=== PATIENT | male | born 1990 | race Caucasian/White ===

== ENCOUNTER 2020-07-20 19:39 | Emergency (ER) | payer MEDICAID, OTHER ==
[~2020-07-20] VITALS: Ht 180.3 cm; Wt 68.2 kg
[~2020-07-20 19:39] MED LIST: DIPH-423 PO; METO-292 PO; OMEP20CA15 PO; ONDA4TAB12 PO; ONDA4TAB6 PO; PHE25R PR; PROC-8 PO
[2020-07-20 19:40] VITALS: BP 137/66
[2020-07-20] MEDS ORDERED: LIDOcaine 1% W/epiNEPHrine 1:200,000 10ml vial IJ ONE (21:15)
== END 2020-07-20 22:41 | disposition home or self-care (01) ==
LOC: ER 19:39
DX: S61.214A Laceration without foreign body of right ring finger without damage to nail, initial encounter (principal); G43.909 Migraine, unspecified, not intractable, without status migrainosus; F12.90 Cannabis use, unspecified, uncomplicated; Z56.0 Unemployment, unspecified; Z60.2 Problems related to living alone; W45.8XXA Other foreign body or object entering through skin, initial encounter; Y93.89 Activity, other specified; Y92.89 Other specified places as the place of occurrence of the external cause; Y99.8 Other external cause status
CPT/HCPCS: 12001; 99282

== ENCOUNTER 2020-09-01 17:49 | Emergency (ER) | payer MEDICAID ==
[~2020-09-01] VITALS: Ht 180.3 cm; Wt 66.4 kg
[2020-09-01] MEDS ORDERED: ondansetron/PF 4mg/2ml inj IV ONE (20:30)
[2020-09-01] MEDS ORDERED: mag hydrox/Alum hydrox/simeth 30ml oral suspension PO ONE (20:30)
[2020-09-01] MEDS ORDERED: famotidine 20mg tablet PO ONE (20:30)
[2020-09-01] MEDS ORDERED: dicyclomine 10 MG capsule PO ONE (20:30)
[2020-09-01 20:38] LABS: BASOPHILS % (AUTO) 0.1 % (0-1); EOSINOPHILS % (AUTO) 0 % (0-6); HEMATOCRIT 48.3 % (42.0-52.0); HEMOGLOBIN 16.4 g/dl (14.0-17.9); LYMPHOCYTES # (AUTO) 0.7 X10'3 (1.1-4.8); LYMPHOCYTES % (AUTO) 3.4 % (21-51); MEAN CORPUSCULAR HEMOGLOBIN 31.4 PG (27.0-31.0); MEAN CORPUSCULAR VOLUME 92.3 FL (78-98); MEAN PLATELET VOLUME 9.7 FL (7.4-10.4); MONOCYTES # (AUTO) 0.6 X10'3 (0-0.9); MONOCYTES % (AUTO) 3.2 % (2-12); NEUTROPHILS # (AUTO) 18.3 X10'3 (1.8-7.7); NEUTROPHILS % (AUTO) 93.3 % (42-75); PLATELET COUNT 208 X10'3 (140-440); RED BLOOD COUNT 5.23 X10'6 (4.70-6.10); RED CELL DISTRIBUTION WIDTH 12.4 % (11.5-14.5); WHITE BLOOD COUNT 19.6 X10'3 (4.5-11.0)
[2020-09-01 20:46] LABS: ALANINE AMINOTRANSFERASE 18 U/L (12-78); ALBUMIN/GLOBULIN RATIO 1.5 (1.1-1.5); ALKALINE PHOSPHATASE 100 IU/L (46-116); ANION GAP 15 (8-16); ASPARTATE AMINO TRANSFERASE 41 U/L (10-37); BILIRUBIN,TOTAL 0.9 MG/DL (0.1-1.0); BLOOD UREA NITROGEN 12 MG/DL (7-18); CALCIUM 9.8 MG/DL (8.5-10.1); CHLORIDE 101 MMOL/L (99-107); CREATININE 1.34 MG/DL (0.60-1.10); GLUCOSE 176 MG/DL (70-104); LIPASE 82 U/L (73-393); POTASSIUM 3.6 MMOL/L (3.5-5.1); SODIUM 137 MMOL/L (135-145); TOTAL CARBON DIOXIDE 20.7 MMOL/L (24-32); TOTAL PROTEIN 8.3 G/DL (6.4-8.2); eGFR 63 ML/MIN
[2020-09-01] MEDS ORDERED: normal saline 1000ML IV soln IVB ONE (21:05)
--- NOTE | 2020-09-01 21:11 | NUR ---
GAVE PT ICE CHIPS, VARINDER WELL, NO N/V
[2020-09-01 21:16] LABS: C-REACTIVE PROTEIN 0.34 MG/DL (0.0-0.5)
[2020-09-01] MEDS ORDERED: diphenhydrAMINE 50 mg/ml inj IV ONE (21:45)
[2020-09-01] MEDS ORDERED: proCHLORperazine 10 MG/2 ml inj IV ONE (21:45)
--- NOTE | 2020-09-01 21:45 | NUR ---
PT HAS STARTED VOMITING AGAIN,
[2020-09-01] MEDS ORDERED: DICY10CA88 PO (22:34)
[2020-09-01] MEDS ORDERED: ONDA4TAB6 PO (22:34)
[2020-09-01 22:39] VITALS: BP 116/70
== END 2020-09-01 22:41 | disposition home or self-care (01) ==
LOC: ER 17:50
DX: R11.2 Nausea with vomiting, unspecified (principal); R10.84 Generalized abdominal pain; G43.909 Migraine, unspecified, not intractable, without status migrainosus; F12.90 Cannabis use, unspecified, uncomplicated; Z60.2 Problems related to living alone; Z56.0 Unemployment, unspecified; Z79.899 Other long term (current) drug therapy
CPT/HCPCS: 36415; 80053; 83690; 85025; 85651; 86140; 96374; 96375; 99284; J0780; J1200; J2405; J7030

== ENCOUNTER 2020-09-03 00:08 | Emergency (ER) | payer MEDICAID ==
[~2020-09-03] VITALS: Ht 180.3 cm; Wt 50.0 kg
[~2020-09-03 00:08] MED LIST changes: +DICY10CA88 PO
[2020-09-03] MEDS ORDERED: normal saline 1000ml 1,000 ML IV ONE (00:45)
[2020-09-03] MEDS ORDERED: ondansetron/PF 4mg/2ml inj IV ONE ×2 (00:45→01:45)
[2020-09-03] MEDS ORDERED: haloperidol lactate 5mg/ml inj IM ONE (01:00)
[2020-09-03 01:27] LABS: ANION GAP 11 (8-16); BLOOD UREA NITROGEN 15 MG/DL (7-18); BUN/CREATININE RATIO 10.1 (5.4-32.0); CALCIUM 10.3 MG/DL (8.5-10.1); CHLORIDE 100 MMOL/L (99-107); CREATININE 1.48 MG/DL (0.60-1.10); GLUCOSE 127 MG/DL (70-104); POTASSIUM 3.6 MMOL/L (3.5-5.1); SODIUM 138 MMOL/L (135-145); TOTAL CARBON DIOXIDE 26.7 MMOL/L (24-32); eGFR 57 ML/MIN
[2020-09-03] MEDS ORDERED: diphenhydrAMINE 25 MG/10 ML UD oral solution PO ONE (01:45)
[2020-09-03 02:36] VITALS: BP 127/79
== END 2020-09-03 02:37 | disposition home or self-care (01) ==
LOC: ER 01:56
DX: R11.15 Cyclical vomiting syndrome unrelated to migraine (principal); R11.2 Nausea with vomiting, unspecified; R10.32 Left lower quadrant pain; G43.909 Migraine, unspecified, not intractable, without status migrainosus; F32.9 Major depressive disorder, single episode, unspecified; F12.90 Cannabis use, unspecified, uncomplicated; Z60.2 Problems related to living alone; Z56.0 Unemployment, unspecified; Z79.899 Other long term (current) drug therapy
CPT/HCPCS: 36415; 80048; 96361; 96372; 96374; 96376; 99284; J1630; J2405; J7030; Q0163; 96375

== ENCOUNTER 2020-09-03 14:34 | Emergency (ER) | payer MEDICAID ==
[~2020-09-03] VITALS: Ht 180.3 cm; Wt 78.0 kg
[2020-09-03 15:14] LABS: BASOPHILS % (AUTO) 0.2 % (0-1); EOSINOPHILS % (AUTO) 0.1 % (0-6); HEMATOCRIT 44.7 % (42.0-52.0); HEMOGLOBIN 15.2 g/dl (14.0-17.9); LYMPHOCYTES # (AUTO) 1.5 X10'3 (1.1-4.8); LYMPHOCYTES % (AUTO) 10.2 % (21-51); MEAN CORPUSCULAR VOLUME 91.1 FL (78-98); MEAN PLATELET VOLUME 8.6 FL (7.4-10.4); MONOCYTES # (AUTO) 1.2 X10'3 (0-0.9); MONOCYTES % (AUTO) 7.8 % (2-12); NEUTROPHILS % (AUTO) 81.7 % (42-75); PLATELET COUNT 200 X10'3 (140-440); RED BLOOD COUNT 4.91 X10'6 (4.70-6.10); RED CELL DISTRIBUTION WIDTH 12.5 % (11.5-14.5); WHITE BLOOD COUNT 14.7 X10'3 (4.5-11.0)
[2020-09-03 15:31] LABS: ALANINE AMINOTRANSFERASE 25 U/L (12-78); ALBUMIN 4.7 G/DL (3.4-5.0); ALBUMIN/GLOBULIN RATIO 1.4 (1.1-1.5); ALKALINE PHOSPHATASE 94 IU/L (46-116); ANION GAP 10 (8-16); ASPARTATE AMINO TRANSFERASE 55 U/L (10-37); BILIRUBIN,TOTAL 1.2 MG/DL (0.1-1.0); BLOOD UREA NITROGEN 13 MG/DL (7-18); BUN/CREATININE RATIO 8.7 (5.4-32.0); CALCIUM 9.8 MG/DL (8.5-10.1); CHLORIDE 100 MMOL/L (99-107); GLUCOSE 114 MG/DL (70-104); LIPASE 123 U/L (73-393); POTASSIUM 3.2 MMOL/L (3.5-5.1); SODIUM 137 MMOL/L (135-145); TOTAL CARBON DIOXIDE 26.9 MMOL/L (24-32); TOTAL PROTEIN 8.1 G/DL (6.4-8.2); eGFR 56 ML/MIN
--- NOTE | 2020-09-03 15:53 | NUR ---
pt stated just went to bathroom and unable to give a ua at this time.
[2020-09-03] MEDS ORDERED: normal saline 1000ml 1,000 ML IV ONE (16:20)
[2020-09-03] MEDS ORDERED: proCHLORperazine 10 MG/2 ml inj IV ONE (16:20)
[2020-09-03] MEDS ORDERED: diphenhydrAMINE 50 mg/ml inj IV ONE (16:20)
[2020-09-03] MEDS ORDERED: dicyclomine 10mg/ml 2ml ampule IM ONE (16:20)
[2020-09-03] MEDS ORDERED: ondansetron/PF 4mg/2ml inj IV ONE (16:20)
[2020-09-03] MEDS ORDERED: potassium Cl 10 mEq/100mL bag IV ONE (16:30)
[2020-09-03] MEDS ORDERED: potassium Cl 20 mEq SR tablet PO ONE (17:00)
--- NOTE | 2020-09-03 17:02 | NUR ---
Alberto LYON ordered to cancel the iv kcl and he will replace with po kcl. iv stopped. pt c/o burning at iv site even with dilution with ns.
[2020-09-03 17:07] VITALS: BP 117/81
== END 2020-09-03 18:19 | disposition home or self-care (01) ==
LOC: ER 14:35
DX: R11.15 Cyclical vomiting syndrome unrelated to migraine (principal); E87.6 Hypokalemia; R10.84 Generalized abdominal pain; G43.909 Migraine, unspecified, not intractable, without status migrainosus; F32.9 Major depressive disorder, single episode, unspecified; F12.90 Cannabis use, unspecified, uncomplicated; Z60.2 Problems related to living alone; Z56.0 Unemployment, unspecified; Z79.899 Other long term (current) drug therapy
CPT/HCPCS: 36415; 80053; 83690; 85025; 96365; 96372; 96375; 99284; J0500; J0780; J1200; J2405; J3480; J7030

== ENCOUNTER 2020-09-05 10:00 | Emergency (ER) | payer MEDICAID ==
[~2020-09-05] VITALS: Ht 180.3 cm; Wt 62.7 kg
[2020-09-05 10:15] VITALS: BP 161/79
== END 2020-09-05 10:46 | disposition left against medical advice (07) ==
LOC: ER 10:00
DX: R11.10 Vomiting, unspecified (principal); Z53.21 Procedure and treatment not carried out due to patient leaving prior to being seen by health care provider
CPT/HCPCS: 99281

== ENCOUNTER 2023-01-10 01:40 | Emergency (ER) | payer MEDICAID ==
[~2023-01-10] VITALS: Ht 182.9 cm; Wt 72.7 kg
[2023-01-10] MEDS ORDERED: HYDROcodone/acetaminophen 5mg/325mg tablet PO ONE (03:50)
[2023-01-10 03:54] LABS: BASOPHILS # (AUTO) 0.1 X10'3 (0-0.2); BASOPHILS % (AUTO) 0.8 % (0-1); EOSINOPHILS # (AUTO) 0.4 X10'3 (0-0.9); EOSINOPHILS % (AUTO) 4.7 % (0-6); HEMATOCRIT 43.3 % (42.0-52.0); HEMOGLOBIN 14.9 g/dl (14.0-17.9); LYMPHOCYTES # (AUTO) 1.9 X10'3 (1.1-4.8); LYMPHOCYTES % (AUTO) 22.9 % (21-51); MEAN CORPUSCULAR HEMOGLOBIN 31.4 PG (27.0-31.0); MEAN CORPUSCULAR HGB CONC 34.3 g/dL (33.0-36.5); MEAN CORPUSCULAR VOLUME 91.4 FL (78-98); MEAN PLATELET VOLUME 8.9 FL (7.4-10.4); MONOCYTES # (AUTO) 0.6 X10'3 (0-0.9); MONOCYTES % (AUTO) 7.5 % (2-12); NEUTROPHILS # (AUTO) 5.3 X10'3 (1.8-7.7); NEUTROPHILS % (AUTO) 64.1 % (42-75); PLATELET COUNT 192 X10'3 (140-440); RED BLOOD COUNT 4.74 X10'6 (4.70-6.10); WHITE BLOOD COUNT 8.2 X10'3 (4.5-11.0)
[2023-01-10] MEDS ORDERED: morphine 4 MG/ML inj SYRINge IV ONE (03:55)
[2023-01-10] MEDS ORDERED: ondansetron/PF 4mg/2ml inj IV ONE (03:55)
[2023-01-10 04:07] LABS: ALANINE AMINOTRANSFERASE 17 U/L (12-78); ALBUMIN 4.2 G/DL (3.4-5.0); ALBUMIN/GLOBULIN RATIO 1.4 (1.1-1.5); ALKALINE PHOSPHATASE 93 IU/L (46-116); ANION GAP 9 (8-16); ASPARTATE AMINO TRANSFERASE 19 U/L (10-37); BILIRUBIN,TOTAL 0.5 MG/DL (0.1-1.0); BLOOD UREA NITROGEN 18 MG/DL (7-18); BUN/CREATININE RATIO 14.9 (5.4-32.0); C-REACTIVE PROTEIN 0.18 MG/DL (0.0-0.5); CALCIUM 8.9 MG/DL (8.5-10.1); CHLORIDE 104 MMOL/L (99-107); CREATININE 1.21 MG/DL (0.60-1.10); GLUCOSE 104 MG/DL (70-104); MAGNESIUM 2.1 MG/DL (1.5-2.4); POTASSIUM 3.6 MMOL/L (3.5-5.1); SODIUM 143 MMOL/L (135-145); TOTAL CARBON DIOXIDE 29.9 MMOL/L (24-32); TOTAL PROTEIN 7.2 G/DL (6.4-8.2); eGFR 70 ML/MIN
[2023-01-10 04:19] LABS: CLARITY,URINE SLIGHTLY CLOUDY (Clear); COLOR,URINE YELLOW (Yellow); GLUCOSE, URINE NEGATIVE (Neg); KETONES,URINE NEGATIVE (Neg); LEUKOCYTE ESTERASE ,URINE NEGATIVE (Neg); NITRITES, URINE NEGATIVE (Neg); OCCULT BLOOD,URINE NEGATIVE (Neg); PH,URINE 7.5 (4.8-8.0); PROTEIN,URINE NEGATIVE (Neg); UROBILINOGEN,URINE 0.2 E.U/dL (0.2-1.0)
[2023-01-10 04:21] LABS: UA COLLECTION TYPE CLN CATCH MIDSTREAM
[2023-01-10 04:25] LABS: AMORPHOUS PHOSPHATES 4+; BACTERIA,URINE FEW /HPF (Neg); MUCUS STRANDS NONE SEEN /LPF (Neg); RBC,URINE 0-2 /HPF (0-2); SQUAMOUS EPITHELIAL CELL,UR NONE SEEN /LPF (FEW); WBC,URINE 0-4 /HPF (0-4)
[2023-01-10] MEDS ORDERED: HYDR-3965 PO (05:11)
[2023-01-10] MEDS ORDERED: ONDA4TAB12 PO (05:11)
[2023-01-10] MEDS ORDERED: NAPR-56 PO (05:11)
[2023-01-10] MEDS ORDERED: ketorolac trometh. 30mg/ml inj. IV ONE (05:20)
[2023-01-10 05:35] VITALS: BP 111/74
== END 2023-01-10 05:49 | disposition home or self-care (01) ==
LOC: ER 01:41
DX: R21 Rash and other nonspecific skin eruption (principal); R60.0 Localized edema; M79.672 Pain in left foot; M79.671 Pain in right foot; G43.909 Migraine, unspecified, not intractable, without status migrainosus; F32.9 Major depressive disorder, single episode, unspecified; F12.90 Cannabis use, unspecified, uncomplicated; Z56.0 Unemployment, unspecified; Z60.2 Problems related to living alone; Z72.89 Other problems related to lifestyle; Z79.899 Other long term (current) drug therapy
CPT/HCPCS: 36415; 80053; 81001; 83605; 83735; 84145; 85025; 85651; 86140; 87040; 96374; 96375; 99284; J1885; J2270; J2405